=== PATIENT | female | born 1985 | race Caucasian/White ===

== ENCOUNTER → 2017-05-19 | Outpatient (CLI) | payer OTHER ==
[2017-05-19 09:20] LABS: BASO % 0.7 % (0.0-1.0); EOS # 0.1 K/mm3 (0.0-0.50); EOS % 1.6 % (0.0-3.0); LARGE UNSTAINED CELL # 0.2 K/mm3 (0.0-0.4); LARGE UNSTAINED CELL % 2.9 % (0.0-4.0); LYMPH # 1.6 K/mm3 (1.5-4.5); LYMPH % 30.8 % (24.0-44.0); MEAN CORPUSCULAR HEMOGLOBIN 31.1 pg (27.0-33.0); MEAN CORPUSCULAR HGB CONC 33.8 g/dl (32.0-36.5); MONO # 0.4 K/mm3 (0.0-0.8); MONO % 7.3 % (0.0-5.0); NEUTROPHILS % 56.7 % (36.0-66.0); PLATELET COUNT, AUTOMATED 262 k/mm3 (150-450); RED CELL DISTRIBUTION WIDTH 12.2 % (11.5-14.5); WHITE BLOOD COUNT 5.3 K/mm3 (4.0-10.0)
[2017-05-19 10:14] LABS: ALBUMIN 3.8 GM/DL (3.2-5.2); ANION GAP 6 MEQ/L (8-16); BLOOD UREA NITROGEN 15 MG/DL (7-18); CALCIUM LEVEL 8.9 MG/DL (8.5-10.1); CARBON DIOXIDE LEVEL 30 MEQ/L (21-32); CHLORIDE LEVEL 105 MEQ/L (98-107); GLOMERULAR FILTRATION RATE > 60.0 (>60); GLUCOSE, FASTING 79 MG/DL (70-105); PHOSPHORUS LEVEL 2.9 MG/DL (2.5-4.9); POTASSIUM SERUM 4.5 MEQ/L (3.5-5.1); SODIUM LEVEL 141 MEQ/L (136-145)
[2017-05-20 14:14] LABS: SJOGREN'S ANTI SS-A <0.2 AI (0.0-0.9); SJOGREN'S ANTI SS-B <0.2 AI (0.0-0.9)
== END ==
LOC: M WUC 08:03
PROVIDERS: ATTEND Nurse Practitioner Family
DX: L98.6 Other infiltrative disorders of the skin and subcutaneous tissue (principal)

== ENCOUNTER → 2017-05-31 | Outpatient (CLI) | payer OTHER | LOC: M WUC 16:05 | PROVIDERS: ATTEND Internal Medicine | DX: R21 Rash and other nonspecific skin eruption (principal) ==

== ENCOUNTER → 2018-05-09 | Outpatient (REF) | payer OTHER ==
[2018-05-09 21:21] LABS: CHLAMYDIA DNA AMPLIFICATION NEGATIVE (NEGATIVE); GC DNA AMPLIFICATION NEGATIVE (NEGATIVE)
[2018-05-16 15:00] LABS: HPV LOW VOL RFLX Negative (Negative)
== END ==
LOC: M LAB REF 16:41
DX: Z11.3 Encounter for screening for infections with a predominantly sexual mode of transmission (principal)

== ENCOUNTER → 2020-11-28 | Outpatient (CLI) | payer OTHER | LOC: M LABSMTC 13:05 | PROVIDERS: ATTEND Family Medicine | DX: Z20.822 Contact with and (suspected) exposure to COVID-19 (principal) ==

== ENCOUNTER → 2021-02-19 | Outpatient (REF) | payer BC, OTHER | LOC: M SFHCWAGY 09:55 | PROVIDERS: ATTEND Specialist | DX: Z01.419 Encounter for gynecological examination (general) (routine) without abnormal findings (principal) ==

== ENCOUNTER → 2022-08-31 | Outpatient (CLI) | payer OTHER ==
[2022-08-31 10:55] LABS: HEMATOCRIT 41.3 % (36.0-47.0); HEMOGLOBIN 13.4 g/dl (12.0-15.5); MEAN CORPUSCULAR HEMOGLOBIN 29.6 pg (27.0-33.0); MEAN CORPUSCULAR HGB CONC 32.4 g/dl (32.0-36.5); MEAN CORPUSCULAR VOLUME 91.2 fl (80.0-96.0); RED BLOOD COUNT 4.53 10^6/uL (4.00-5.40)
[2022-08-31 12:21] LABS: HEPATITIS C VIRUS ABY INDEX < 0.0 INDEX (<0.8); HIV 1&2 SCREEN CENTAUR NEGATIVE (NEGATIVE)
[2022-08-31 15:24] LABS: GC DNA AMPLIFICATION NEGATIVE (NEGATIVE)
== END ==
LOC: M PLALAB 08:25
PROVIDERS: ATTEND Specialist
DX: Z34.81 Encounter for supervision of other normal pregnancy, first trimester (principal)

== ENCOUNTER → 2022-09-09 | Outpatient (CLI) | payer OTHER ==
[2022-09-09 14:20] LABS: HEMATOCRIT 39.7 % (36.0-47.0); HEMOGLOBIN 13.1 g/dl (12.0-15.5); MEAN CORPUSCULAR HEMOGLOBIN 29.9 pg (27.0-33.0); MEAN CORPUSCULAR VOLUME 90.6 fl (80.0-96.0); RED BLOOD COUNT 4.38 10^6/uL (4.00-5.40); WHITE BLOOD COUNT 6.9 10^3/uL (4.0-10.0)
[2022-09-09 15:43] LABS: ALT/SGPT 36 U/L (12-78); BILIRUBIN,TOTAL 0.2 MG/DL (0.2-1.0); CREATININE FOR GFR 0.57 MG/DL (0.55-1.30); GLOMERULAR FILTRATION RATE > 60.0 (>60); LDH LACTATE DEHYDROGENASE 135 U/L (84-246); URIC ACID 3.2 MG/DL (2.6-6.0)
[2022-09-09 16:55] LABS: TOTAL PROTEIN,RANDOM URINE 23.2 MG/DL (0.0-12.0)
[2022-09-09 16:58] LABS: PLTBLUE- EDTA FREE MACHINE 218 10^3/uL (172-450)
[2022-09-09 17:26] LABS: PLTBLUE- EDTA FREE CALC 240 K/mm3 (172-450)
== END ==
LOC: M PLALAB 11:20
PROVIDERS: ATTEND Advanced Practice Midwife
DX: O13.1 Gestational [pregnancy-induced] hypertension without significant proteinuria, first trimester (principal); Z3A.00 Weeks of gestation of pregnancy not specified

== ENCOUNTER → 2022-10-12 | Outpatient (CLI) | payer OTHER | LOC: M WHC 07:57 | PROVIDERS: ATTEND Advanced Practice Midwife | DX: Z34.01 Encounter for supervision of normal first pregnancy, first trimester (principal) ==

== ENCOUNTER → 2022-11-26 | Outpatient (CLI) | payer OTHER | LOC: M WHC 06:56 | PROVIDERS: ATTEND Advanced Practice Midwife | DX: Z34.02 Encounter for supervision of normal first pregnancy, second trimester (principal); Z3A.25 25 weeks gestation of pregnancy ==

== ENCOUNTER → 2022-12-10 | Outpatient (CLI) | payer OTHER ==
[2022-12-10 10:28] LABS: HEMATOCRIT 39.2 % (36.0-47.0); HEMOGLOBIN 12.5 g/dl (12.0-15.5); MEAN CORPUSCULAR HEMOGLOBIN 29.3 pg (27.0-33.0); MEAN CORPUSCULAR HGB CONC 31.9 g/dl (32.0-36.5); MEAN CORPUSCULAR VOLUME 91.8 fl (80.0-96.0); PLATELET COUNT, AUTOMATED 178 10^3/uL (150-450); RED BLOOD COUNT 4.27 10^6/uL (4.00-5.40); WHITE BLOOD COUNT 10.4 10^3/uL (4.0-10.0)
== END ==
LOC: M PLALAB 07:59
PROVIDERS: ATTEND Advanced Practice Midwife
DX: Z36.9 Encounter for antenatal screening, unspecified (principal)

== ENCOUNTER 2022-12-31 11:10 | Outpatient (RCR) | payer OTHER | END 2023-01-04 | LOC: M OT 11:10 | PROVIDERS: ATTEND Advanced Practice Midwife | DX: G56.03 Carpal tunnel syndrome, bilateral upper limbs (principal) ==

== ENCOUNTER 2023-01-10 08:04 | Outpatient (RCR) | payer OTHER ==
[2023-02-04] MEDS ORDERED: PRENTAB9 PO (09:42)
[2023-02-04] MEDS ORDERED: ASPI81CH33 PO (09:42)
[2023-02-04] MEDS ORDERED: LABE100T71 PO (15:11)
== END 2023-02-04 ==
LOC: M OT 08:04
PROVIDERS: ATTEND Advanced Practice Midwife
DX: G56.03 Carpal tunnel syndrome, bilateral upper limbs (principal)

== ENCOUNTER → 2023-01-14 | Outpatient (CLI) | payer OTHER | LOC: M WHC 08:31 | PROVIDERS: ATTEND Advanced Practice Midwife | DX: Z34.03 Encounter for supervision of normal first pregnancy, third trimester (principal) ==

== ENCOUNTER → 2023-02-02 | Outpatient (CLI) | payer OTHER ==
[2023-02-02 13:44] LABS: HEMATOCRIT 39.7 % (36.0-47.0); HEMOGLOBIN 12.9 g/dl (12.0-15.5); MEAN CORPUSCULAR HEMOGLOBIN 29.5 pg (27.0-33.0); MEAN CORPUSCULAR HGB CONC 32.5 g/dl (32.0-36.5); MEAN CORPUSCULAR VOLUME 90.8 fl (80.0-96.0); PLATELET COUNT, AUTOMATED 191 10^3/uL (150-450); RED BLOOD COUNT 4.37 10^6/uL (4.00-5.40); WHITE BLOOD COUNT 10.4 10^3/uL (4.0-10.0)
[2023-02-02 13:57] LABS: TOTAL PROTEIN,RANDOM URINE 25.9 MG/DL (0.0-14.0)
[2023-02-02 14:00] LABS: URIC ACID 3.8 MG/DL (3.1-7.8)
[2023-02-02 14:02] LABS: CREATININE,RANDOM URINE 111.6 MG/DL; LDH LACTATE DEHYDROGENASE 132 U/L (120-246)
[2023-02-02 14:03] LABS: ALT/SGPT 24 U/L (7.0-40); AST/SGOT 18 U/L (<34); BILIRUBIN,TOTAL 0.4 MG/DL (0.3-1.2); CREATININE FOR GFR 0.51 MG/DL (0.55-1.30); GLOMERULAR FILTRATION RATE > 60.0 (>60)
== END ==
LOC: M PLALAB 09:16
PROVIDERS: ATTEND Advanced Practice Midwife
DX: O16.3 Unspecified maternal hypertension, third trimester (principal)

== ENCOUNTER 2023-02-04 09:28 | Outpatient (CLI) | payer OTHER ==
[~2023-02-04] VITALS: Ht 175.3 cm; Wt 116.6 kg
[2023-02-04] MEDS ORDERED: PRENTAB9 PO ×2 (09:42)
[2023-02-04] MEDS ORDERED: ASPI81CH33 PO (09:42)
[2023-02-04] MEDS ORDERED: HOME MED LIST COMPLETE! XX SCH (09:50)
[2023-02-04 09:52] VITALS: BP 133/78
[2023-02-04] MEDS ORDERED: LR 1,000 ML IV ONE (10:40)
[2023-02-04 10:47] VITALS: BP 136/74
[2023-02-04 10:51] LABS: APPEARANCE, URINE CLEAR (CLEAR); BACTERIA, URINE AUTO 1+ (NEGATIVE); BILIRUBIN, URINE AUTO NEGATIVE (NEGATIVE); BLOOD, URINE BLOOD 1+ (NEGATIVE); COLOR, URINE YELLOW (YELLOW); GLUCOSE, URINE (UA) AUTO NEGATIVE (NEGATIVE); KETONE, URINE AUTO 2+ mg/dL (NEGATIVE); LEUKOCYTE ESTERASE, URINE AUTO NEGATIVE (NEGATIVE); MUCUS, URINE SMALL (NEGATIVE); NITRITE, URINE AUTO NEGATIVE (NEGATIVE); PROTEIN, URINE AUTO NEGATIVE (NEGATIVE); RBC, URINE AUTO 2 /HPF (0-3); SPECIFIC GRAVITY URINE AUTO 1.008 (1.002-1.035); SQUAMOUS EPITHELIAL CELL UR AU 1 /HPF (0-6); UROBILINOGEN, URINE AUTO 0.2 mg/dL (0.0-2.0); WBC, URINE AUTO 1 /HPF (0-3)
[2023-02-04] MEDS ORDERED: BETAMETHASONE SOLUSPAN 6MG/ML 5ML VIAL IM SCH (11:00)
[2023-02-04 11:10] LABS: TOTAL PROTEIN,RANDOM URINE 11.7 MG/DL (0.0-14.0)
[2023-02-04 11:15] LABS: CREATININE,RANDOM URINE 34.6 MG/DL
[2023-02-04 11:23] LABS: HEMOGLOBIN 12.7 g/dl (12.0-15.5); MEAN CORPUSCULAR HEMOGLOBIN 29.4 pg (27.0-33.0); MEAN CORPUSCULAR HGB CONC 32.6 g/dl (32.0-36.5); MEAN CORPUSCULAR VOLUME 90.3 fl (80.0-96.0); PLATELET COUNT, AUTOMATED 296 10^3/uL (150-450); RED BLOOD COUNT 4.32 10^6/uL (4.00-5.40); WHITE BLOOD COUNT 11.6 10^3/uL (4.0-10.0)
[2023-02-04 11:43] LABS: URIC ACID 3.4 MG/DL (3.1-7.8)
[2023-02-04 11:45] LABS: LDH LACTATE DEHYDROGENASE 141 U/L (120-246)
[2023-02-04 11:46] LABS: ALT/SGPT 22 U/L (7.0-40); AST/SGOT 18 U/L (<34); BILIRUBIN,TOTAL 0.4 MG/DL (0.3-1.2); CREATININE FOR GFR 0.41 MG/DL (0.55-1.30); GLOMERULAR FILTRATION RATE > 60.0 (>60)
[2023-02-04 13:08] VITALS: BP 145/70
[2023-02-04] MEDS ORDERED: LABE100T71 PO (15:11)
== END 2023-02-04 15:22 | disposition home or self-care (01) ==
LOC: M LDO 09:28
PROVIDERS: ATTEND Advanced Practice Midwife
DX: O13.3 Gestational [pregnancy-induced] hypertension without significant proteinuria, third trimester (principal); O41.03X9 Oligohydramnios, third trimester, other fetus; O09.513 Supervision of elderly primigravida, third trimester; Z3A.34 34 weeks gestation of pregnancy
CPT/HCPCS: 36415; 59025; 81001; 82247; 82565; 82570; 83615; 84156; 84450; 84460; 84550; 85027; 96372; G0463; J0702

== ENCOUNTER → 2023-02-04 | Outpatient (CLI) | payer OTHER ==
[~2023-02-04] MED LIST: ASPI81CH33 PO; LABE100T71 PO; PRENTAB9 PO
== END ==
LOC: M WHC 08:25
PROVIDERS: ATTEND Specialist
DX: O10.919 Unspecified pre-existing hypertension complicating pregnancy, unspecified trimester (principal); Z3A.34 34 weeks gestation of pregnancy

== ENCOUNTER 2023-02-05 10:41 | Outpatient (CLI) | payer OTHER ==
[~2023-02-05] VITALS: Ht 175.3 cm; Wt 115.9 kg
[2023-02-05 10:52] VITALS: BP 137/72
[2023-02-05] MEDS ORDERED: HOME MED LIST COMPLETE! XX SCH (11:00)
[2023-02-05] MEDS ORDERED: BETAMETHASONE SOLUSPAN 6MG/ML 5ML VIAL IM ONE (11:30)
== END 2023-02-05 12:33 | disposition home or self-care (01) ==
LOC: M LDO 10:41
PROVIDERS: ATTEND Obstetrics & Gynecology
DX: O13.3 Gestational [pregnancy-induced] hypertension without significant proteinuria, third trimester (principal); O09.513 Supervision of elderly primigravida, third trimester; O41.03X9 Oligohydramnios, third trimester, other fetus; Z3A.35 35 weeks gestation of pregnancy
CPT/HCPCS: 59025; 76815; 76820; 96372; G0463; J0702

== ENCOUNTER → 2023-02-08 | Outpatient (REF) | payer OTHER | LOC: M PLALAB 09:01 | PROVIDERS: ATTEND Advanced Practice Midwife | DX: Z34.80 Encounter for supervision of other normal pregnancy, unspecified trimester (principal) ==

== ENCOUNTER 2023-02-12 17:33 | Inpatient (IN) | payer OTHER ==
[~2023-02-12] VITALS: Ht 175.3 cm; Wt 115.9 kg
[2023-02-12 18:14] VITALS: BP 134/65
[2023-02-12] MEDS ORDERED: HOME MED LIST COMPLETE! XX SCH (18:15)
[2023-02-12 19:12] LABS: HEMATOCRIT 37.4 % (36.0-47.0); HEMOGLOBIN 12.3 g/dl (12.0-15.5); MEAN CORPUSCULAR HEMOGLOBIN 29.7 pg (27.0-33.0); MEAN CORPUSCULAR HGB CONC 32.9 g/dl (32.0-36.5); MEAN CORPUSCULAR VOLUME 90.3 fl (80.0-96.0); PLATELET COUNT, AUTOMATED 261 10^3/uL (150-450); RED BLOOD COUNT 4.14 10^6/uL (4.00-5.40); WHITE BLOOD COUNT 8.7 10^3/uL (4.0-10.0)
[2023-02-12] MEDS ORDERED: LACTATED RINGER'S 1000 ML IV STA (19:37)
[2023-02-12] MEDS ORDERED: LIDOCAINE 1% MDV 20ML VIAL INFIL PRN (19:40)
[2023-02-12] MEDS ORDERED: CARBOPROST TROMETHAMINE 250 MCG/ML AMP IM PRN (19:40)
[2023-02-12] MEDS ORDERED: TRANEXAMIC ACID INJection 1,000 MG in NS 100 ML IV PRN (19:40)
[2023-02-12 19:49] VITALS: BP 131/75
[2023-02-12] MEDS: miSOPROStol 50MCG 1/2 TABLET PO SCH (19:49)
[2023-02-12 20:42] VITALS: BP 123/59
[2023-02-12 20:45] LABS: URIC ACID 3.1 MG/DL (3.1-7.8)
[2023-02-12 20:47] LABS: LDH LACTATE DEHYDROGENASE 153 U/L (120-246)
[2023-02-12 20:48] LABS: ALT/SGPT 28 U/L (7.0-40); AST/SGOT 17 U/L (<34); BILIRUBIN,TOTAL 0.3 MG/DL (0.3-1.2); CREATININE FOR GFR 0.48 MG/DL (0.55-1.30); GLOMERULAR FILTRATION RATE > 60.0 (>60)
[2023-02-12 21:01] LABS: TOTAL PROTEIN,RANDOM URINE 26.5 MG/DL (0.0-14.0)
[2023-02-12 21:50] VITALS: BP 120/75
[2023-02-13] VITALS (14 sets, daily range): BP systolic 101–145; BP diastolic 52–74
[2023-02-13] MEDS ORDERED: PENICILLIN G POTASSIUM 5 MU IV 5 MU in D5W MINI-BAG PLUS 100 ML IV STA ×2 (00:09→22:13)
[2023-02-13] MEDS: miSOPROStol 50MCG 1/2 TABLET PO SCH ×5 (00:23→19:42)
[2023-02-13] MEDS ORDERED: PEN G POT 3,000,000 UNIT/50 ML 3,000,000 UNIT in IV 1 EA IV SCH (04:10)
[2023-02-13] MEDS ORDERED: **PENDING PCN ENTRY XX SCH (09:00)
[2023-02-13] MEDS: LABETALOL 100MG TAB PO SCH (12:03)
[2023-02-13] MEDS ORDERED: OXYTOCIN DRIP 30 UNITS in IV 1 EA IV SCH (22:15)
[2023-02-14] VITALS (48 sets, daily range): BP systolic 98–154; BP diastolic 48–87
[2023-02-14] MEDS: LR 1,000 ML IV SCH ×3 (00:02→16:35)
[2023-02-14] MEDS: PEN G POT 3,000,000 UNIT/50 ML 3,000,000 UNIT in IV 1 EA IV SCH ×5 (03:57→21:48)
[2023-02-14] MEDS: LABETALOL 100MG TAB PO SCH (09:40)
[2023-02-14] MEDS ORDERED: FENTANYL 2MCG/ML ROPIVACAINE 0.2% IN 0.9% NACL 100ML IVBAG As Ordered ONE (11:54)
[2023-02-14] MEDS ORDERED: LR 500 ML IV PRN (11:55)
[2023-02-14] MEDS ORDERED: diphenhydrAMINE 50MG/ML VIAL IV PRN (11:55)
[2023-02-14] MEDS ORDERED: EPIDURAL/PCA KEYS XX PRN (11:55)
[2023-02-14] MEDS ORDERED: ONDANSETRON 4MG 2ML VIAL IV PRN (11:55)
[2023-02-14] MEDS ORDERED: ePHEDrine SULFATE 25 MG/5 ML(5MG/ML) SYRINGE IVP PRN (11:55)
[2023-02-14] MEDS ORDERED: NALOXONE INJ 0.4MG/1ML VIAL IV PRN (11:55)
[2023-02-14] MEDS: FENTANYL/ROPIVACAINE/NACL BAG 100 ML EPIDURAL SCH ×2 (12:38→18:54)
[2023-02-15] MEDS ORDERED: DOCUSATE SODIUM 100MG CAPSULE PO PRN (00:15)
[2023-02-15] MEDS ORDERED: ACETAMINOPHEN 500 MG TAB PO PRN (00:15)
[2023-02-15] MEDS ORDERED: IBUPROFEN 800 MG TAB PO PRN (00:15)
[2023-02-15] MEDS ORDERED: METHYLERGONOVINE MALEATE 0.2MG/ML 1ML VIAL IM ONE (00:15)
[2023-02-15] MEDS ORDERED: RHOGAM 300MCG (1500IU) INJ IM SCH (00:15)
[2023-02-15] MEDS ORDERED: OXYTOCIN DRIP 30 UNITS in IV 1 EA IV SCH (00:15)
[2023-02-15] MEDS ORDERED: DIBUCAINE 1% OINTMENT 30GM TOP PRN (00:15)
[2023-02-15] MEDS ORDERED: ACETAMINOPHEN TAB 650MG DOSE (2X325MG) PO PRN (00:15)
[2023-02-15 00:16] VITALS: BP 149/72
[2023-02-15 00:31] VITALS: BP 152/74
[2023-02-15 00:46] VITALS: BP 136/63
[2023-02-15 02:15] VITALS: BP 121/66
[2023-02-15 06:18] VITALS: BP 125/69
[2023-02-15] MEDS: PRENATAL VITAMINS CHEWABLE TABLET PO SCH (09:13)
[2023-02-15] MEDS: LABETALOL 100MG TAB PO SCH (09:13)
[2023-02-15] MEDS: IBUPROFEN 600MG TAB PO PRN ×2 (09:13→17:47)
[2023-02-15 17:56] VITALS: BP 125/59
[2023-02-16 06:00] VITALS: BP 124/60
[2023-02-16] MEDS: PRENATAL VITAMINS CHEWABLE TABLET PO SCH (08:05)
[2023-02-16] MEDS: IBUPROFEN 600MG TAB PO PRN (08:06)
[2023-02-16 08:08] VITALS: BP 126/59
[2023-02-16] MEDS: LABETALOL 100MG TAB PO SCH (08:08)
[2023-02-17] MEDS ORDERED: MEASLES,MUMPS,RUBELLA VACCINE INJ (MMR-II) SC.IMMUN ONE (09:00)
== END 2023-02-16 18:16 | disposition home or self-care (01) | DRG 806 ==
LOC: M LDI 17:33 → M OBS 02-15 02:30
PROVIDERS: ADMIT Obstetrics & Gynecology; ATTEND Advanced Practice Midwife
PROC: 3E0P7GC Introduction of Other Therapeutic Substance into Female Reproductive, Via Natural or Artificial Opening (ICD-10-PCS; 2023-02-12)
PROC: 10E0XZZ Delivery of Products of Conception, External Approach (ICD-10-PCS; principal; 2023-02-14)
DX: O41.03X0 Oligohydramnios, third trimester, not applicable or unspecified (principal); Z37.0 Single live birth; O10.02 Pre-existing essential hypertension complicating childbirth; Z3A.36 36 weeks gestation of pregnancy; O09.523 Supervision of elderly multigravida, third trimester; Z79.899 Other long term (current) drug therapy; O99.824 Streptococcus B carrier state complicating childbirth

== ENCOUNTER → 2023-03-21 | Outpatient (REF) | payer OTHER | LOC: M SFHCWAGY 17:06 | PROVIDERS: ATTEND Nurse Practitioner Family | DX: N73.9 Female pelvic inflammatory disease, unspecified (principal) ==

== ENCOUNTER → 2024-03-14 | Outpatient (REF) | payer OTHER ==
[~2024-03-14] MED LIST changes: +LABE100T40 PO; -LABE100T71 PO
== END ==
LOC: M SFHCWAGY 10:05
PROVIDERS: ATTEND Nurse Practitioner Family
DX: R30.0 Dysuria (principal)

== ENCOUNTER 2024-05-03 07:44 | Outpatient (RCR) | payer OTHER | END 2024-05-06 | LOC: M PT 07:44 | PROVIDERS: ATTEND Nurse Practitioner Family | DX: N39.46 Mixed incontinence (principal); N81.6 Rectocele; N81.10 Cystocele, unspecified ==

== ENCOUNTER 2024-05-24 07:45 | Outpatient (RCR) | payer OTHER | END 2024-06-06 | LOC: M PT 07:45 | PROVIDERS: ATTEND Nurse Practitioner Family | DX: N39.46 Mixed incontinence (principal); N81.6 Rectocele; N81.10 Cystocele, unspecified ==

== ENCOUNTER → 2024-06-12 | Outpatient (CLI) | payer OTHER ==
[2024-06-15 12:00] LABS: HPV APTIMA Not Detected (Not Detected)
== END ==
LOC: M PLALAB 16:02
PROVIDERS: ATTEND Nurse Practitioner Family
DX: Z12.4 Encounter for screening for malignant neoplasm of cervix (principal); Z80.0 Family history of malignant neoplasm of digestive organs; Z80.8 Family history of malignant neoplasm of other organs or systems; Z80.42 Family history of malignant neoplasm of prostate
CPT/HCPCS: 36415; 87624; G0123

== ENCOUNTER → 2024-06-12 | Outpatient (CLI) | payer OTHER | LOC: M WHC 15:17 | PROVIDERS: ATTEND Nurse Practitioner Family | DX: Z12.31 Encounter for screening mammogram for malignant neoplasm of breast (principal); Z53.9 Procedure and treatment not carried out, unspecified reason ==

== ENCOUNTER → 2024-06-12 | Outpatient (CLI) | payer OTHER | LOC: M WHC 14:20 | PROVIDERS: ATTEND Nurse Practitioner Family | DX: Z12.31 Encounter for screening mammogram for malignant neoplasm of breast (principal) ==

== ENCOUNTER 2024-07-05 08:30 | Outpatient (RCR) | payer OTHER | END 2024-07-07 | LOC: M PT 08:30 | PROVIDERS: ATTEND Nurse Practitioner Family | DX: N39.3 Stress incontinence (female) (male) (principal) ==

== ENCOUNTER 2024-07-26 13:00 | Outpatient (RCR) | payer OTHER | END 2024-08-06 | LOC: M PT 13:00 | PROVIDERS: ATTEND Nurse Practitioner Family | DX: N39.3 Stress incontinence (female) (male) (principal) ==

== ENCOUNTER 2024-08-30 08:30 | Outpatient (RCR) | payer OTHER | END 2024-09-06 | LOC: M PT 08:30 | PROVIDERS: ATTEND Nurse Practitioner Family | DX: N39.3 Stress incontinence (female) (male) (principal) ==

== ENCOUNTER → 2025-03-20 | Outpatient (CLI) | payer OTHER ==
[2025-03-20 12:53] LABS: FREE T4 1.19 NG/DL (0.89-1.76); THYROID STIMULATING HORMONE 1.329 uIU/ML (0.55-4.78)
== END ==
LOC: M PLALAB 09:23
PROVIDERS: ATTEND Nurse Practitioner Family
DX: E66.9 Obesity, unspecified (principal)

== ENCOUNTER → 2025-03-20 | Outpatient (CLI) | payer OTHER ==
[2025-03-20 12:12] LABS: BASO % 0.7 % (0.0-1.0); EOS # 0.1 10^3/uL (0.0-0.5); EOS % 1.4 % (0.0-3.0); HEMATOCRIT 44.5 % (36.0-47.0); HEMOGLOBIN 14.5 g/dl (12.0-15.5); LYMPH # 1.4 10^3/uL (1.5-5.0); LYMPH % 23.8 % (24.0-44.0); MEAN CORPUSCULAR HEMOGLOBIN 29.1 pg (27.0-33.0); MEAN CORPUSCULAR HGB CONC 32.6 g/dl (32.0-36.5); MEAN CORPUSCULAR VOLUME 89.4 fl (80.0-96.0); MONO # 0.6 10^3/uL (0.0-0.8); MONO % 10.1 % (2.0-8.0); NEUTROPHILS # 3.7 10^3/uL (1.5-8.5); NEUTROPHILS % 63.8 % (36.0-66.0); RED BLOOD COUNT 4.98 10^6/uL (4.00-5.40); WHITE BLOOD COUNT 5.8 10^3/uL (4.0-10.0)
[2025-03-20 12:50] LABS: HEMOGLOBIN A1c 4.7 % (4.0-6.0)
[2025-03-20 12:51] LABS: TOTAL IRON BINDING CAPACITY 271 UG/DL (250-425)
[2025-03-20 12:52] LABS: ALBUMIN 3.9 G/DL (3.2-5.2); ALKALINE PHOSPHATASE 65 U/L (35-104); ALT/SGPT 16 U/L (7.0-40); AST/SGOT 12 U/L (<34); BILIRUBIN,TOTAL 0.6 MG/DL (0.3-1.2); BLOOD UREA NITROGEN 18 MG/DL (9-23); CALCIUM LEVEL 9.2 MG/DL (8.5-10.1); CARBON DIOXIDE LEVEL 27 MMOL/L (20-31); CHLORIDE LEVEL 105 MMOL/L (98-107); CHOLESTEROL LEVEL 200 MG/DL (<200); CHOLESTEROL RISK RATIO 3.57 (<5); CREATININE FOR GFR 0.68 MG/DL (0.55-1.30); FERRITIN 79.6 NG/ML (7.3-270.7); GLOMERULAR FILTRATION RATE > 90.0 (>58); GLUCOSE, FASTING 79 MG/DL (60-100); IRON (FE) 97 UG/DL (50-170); PERCENT SATURATION 35.8 % (13.2-45.0); POTASSIUM SERUM 4.7 MMOL/L (3.5-5.1); SODIUM LEVEL 140 MMOL/L (136-145); TOTAL PROTEIN 7.3 G/DL (5.7-8.2); TRIGLYCERIDES LEVEL 45 MG/DL (<150)
== END ==
LOC: M PLALAB 09:20
PROVIDERS: ATTEND Student in an Organized Health Care Education/Training Program
DX: Z13.6 Encounter for screening for cardiovascular disorders (principal); Z13.220 Encounter for screening for lipoid disorders

== ENCOUNTER → 2025-03-22 | Outpatient (CLI) | payer OTHER ==
[2025-03-22 10:38] LABS: HEMATOCRIT 43.4 % (36.0-47.0)
== END ==
LOC: M PLALAB 07:32
PROVIDERS: ATTEND Student in an Organized Health Care Education/Training Program
DX: D69.1 Qualitative platelet defects (principal)

== ENCOUNTER 2025-05-27 16:32 | Emergency (ER) | payer OTHER ==
[~2025-05-27] VITALS: Ht 175.3 cm; Wt 102.3 kg
[2025-05-27] MEDS ORDERED: ISOVUE-370 76% 100 ML VIAL As Ordered ONE (17:13)
[2025-05-27 17:25] LABS: BASO # 0.1 10^3/uL (0.0-0.2); BASO % 0.7 % (0.0-1.0); EOS # 0.1 10^3/uL (0.0-0.5); EOS % 2.1 % (0.0-3.0); LYMPH # 2.0 10^3/uL (1.5-5.0); LYMPH % 29.5 % (24.0-44.0); MONO # 0.7 10^3/uL (0.0-0.8); MONO % 9.7 % (2.0-8.0); NEUTROPHILS # 3.9 10^3/uL (1.5-8.5); NEUTROPHILS % 57.9 % (36.0-66.0); PLATELET COUNT, AUTOMATED 185 10^3/uL (150-450)
[2025-05-27 17:38] LABS: INR 0.95
[2025-05-27] MEDS ORDERED: THERTAB52 PO (19:18)
[2025-05-27] MEDS ORDERED: TIRZ5PEN3 SC (19:18)
[2025-05-27] MEDS ORDERED: PROP10TA56 PO (19:18)
[2025-05-27] MEDS ORDERED: HOME MED LIST COMPLETE! XX SCH (19:20)
[2025-05-27 20:45] VITALS: BP 122/56; O2SAT 96
[2025-05-27 20:52] VITALS: TEMP 98.8
== END 2025-05-27 20:54 | disposition home or self-care (01) ==
LOC: M ED 16:32
DX: R20.2 Paresthesia of skin (principal); F41.9 Anxiety disorder, unspecified; Z91.040 Latex allergy status; Z91.018 Allergy to other foods; Z79.899 Other long term (current) drug therapy; Z79.810 Long term (current) use of selective estrogen receptor modulators (SERMs)
CPT/HCPCS: 36415; 70450; 70496; 70498; 70551; 71045; 80047; 85025; 85610; 85730; 86618; 86850; 86900; 86901; 93005; 93041; 94760; 99285; Q9967

== ENCOUNTER → 2025-06-04 | Outpatient (CLI) | payer OTHER ==
[~2025-06-04] MED LIST changes: +ISOVUE-370 76% 100 ML VIAL ONE; +PROP10TA56 PO; +THERTAB52 PO; +TIRZ5PEN3 SC
== END ==
LOC: M PLAIMG 07:43
PROVIDERS: ATTEND Physician Assistant Medical
DX: H92.02 Otalgia, left ear (principal)
CPT/HCPCS: 70481; Q9967

== ENCOUNTER → 2025-10-29 | Outpatient (CLI) | payer OTHER ==
[~2025-10-29] MED LIST changes: +BRIN1TAB; -ISOVUE-370 76% 100 ML VIAL ONE
== END ==
LOC: M RAD 12:50
DX: R07.9 Chest pain, unspecified (principal); R00.2 Palpitations; I67.9 Cerebrovascular disease, unspecified